=== PATIENT | female | born 2000 | race Two or more races ===

== ENCOUNTER 2024-02-12 23:09 | Emergency (ER) | payer OTHER ==
[~2024-02-12] VITALS: Ht 160 cm; Wt 68.0 kg
[2024-02-13] MEDS ORDERED: 0.9 % SODIUM CHLORIDE 500 ML IV STA (02:39)
[2024-02-13] MEDS ORDERED: 0.9 % SODIUM CHLORIDE 1,000 ML IV SCH (02:45)
[2024-02-13 03:08] LABS: HEMATOCRIT 34.9 % (36.0-45.00); HEMOGLOBIN 11.2 g/dL (12.0-15.00); MEAN CELL VOLUME 77.5 fL (80.00-100.00); MEAN CORPUSCULAR HEMOGLOBIN 24.9 pg (27.00-32.0); MEAN CORPUSCULAR HGB CONC 32.1 g/dl (32.0-36.0); PLATELET COUNT 364 K/uL (150-450); RED BLOOD COUNT 4.51 M/uL (4.00-6.00); RED CELL DISTRIBUTION WIDTH 20.5 % (11.5-14.5)
[2024-02-13 04:02] LABS: ALBUMIN 3.8 gm/dL (3.4-5.0); BILIRUBIN TOTAL 0.43 mg/dL (0.3-1.2); CALCIUM 9.7 mg/dL (8.5-10.1); CREATININE SERUM 0.61 mg/dL (0.55-1.02); GFR 119.5; GLOBULINA 3.9 G/DL (2.4-3.5); POTASSIUM 4.01 mEq/L (3.5-5.1); TOTAL PROTEIN 7.7 gm/dL (6.4-8.2)
[2024-02-13 04:32] LABS: URINE APPEARANCE Cloudy; URINE BILIRRUBIN Negative (NEGATIVE); URINE BLOOD Large; URINE COLOR Dark Yellow; URINE GLUCOSE Negative (NEGATIVE); URINE LEUKOCYTE Trace; URINE NITRATE Negative; URINE PROTEIN 30 (NEGATIVE)
[2024-02-13 04:43] LABS: URINE BACTERIA 1364.5 uL (0.0-1933); URINE EPITHELIAL CELLS 35.2 uL (0.0-38.8); URINE RBC 108.9 uL (0.0-20.8); URINE WBC 67.5 uL (0.0-23.2)
[2024-02-13 04:46] LABS: COCAINE NEGATIVE (NEGATIVE); METHADONE NEGATIVE (NEGATIVE); OPIATES NEGATIVE (NEGATIVE); THC ( Cannabinoids) NEGATIVE (NEGATIVE)
== END 2024-02-13 05:16 | disposition home or self-care (01) ==
LOC: ER 23:09
DX: R53.81 Other malaise (principal); Z88.0 Allergy status to penicillin